=== PATIENT | female | born 1995 | race Two or more races ===

== ENCOUNTER 2016-11-27 11:18 | Emergency (ER) | payer SELFPAY ==
[~2016-11-27] VITALS: Ht 142.2 cm; Wt 59.0 kg
[2016-11-27 11:31] VITALS: BP 113/61
--- NOTE | 2016-11-28 11:02 | ED.ADGEN ---
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 Patient reports exposure to pinkeye. Denies eye pain or change of vision. Patient does not wear corrective lenses or glasses patient also reports sore throat for the past month. Patient recently relocated to the community currently does not have a primary care doctor. Review of Systems Review of Systems Review symptoms as per history of present illness. All other review symptoms are negative. Allergies Allergies Allergies Coded Allergies Type Severity Reaction Last Updated Verified Penicillins Allergy Unknown 11/27/16 Yes Physical Exam Physical Exam Constitutional: Well developed, well nourished, no acute distress, non-toxic appearance. HENT: Normocephalic, atraumatic, bilateral external ears normal. Eyes: PERRL, conjunctiva injected, light matting on eyelashes. No periorbital cellulitis, or pain with ocular movement. Neck: Normal range of motion, left submandibular lymphadenopathy. Psychologic: Affect normal, judgement normal, mood normal. Current Patient Data Vital Signs Vital Signs Date Time Temp Pulse Resp B/P (MAP) Pulse Ox O2 Delivery O2 Flow Rate FiO2 11/27/16 11:31 98.5 88 20 99 Room Air EKG EKG [] Radiology/Procedures Radiology/Procedures [] Course & Med Decision Making Course & Med Decision Making Pertinent Labs and Imaging studies reviewed. (See chart for details) [] Final Impression Final Impression [Bacterial conjunctivitis of the left eye] Problems: Dragon Disclaimer Dragon Disclaimer This electronic medical record was generated, in whole or in part, using a voice recognition dictation system. ROSEANN VIGIL DO November 28, 2016 11:02
== END 2016-11-27 12:02 | disposition home or self-care (01) ==
LOC: ER 11:18
DX: H10.89 Other conjunctivitis (principal); Z88.0 Allergy status to penicillin
CPT/HCPCS: 99283